=== PATIENT | female | born 1990 | race African-American/Black ===

== ENCOUNTER 2018-10-29 23:37 | Emergency (ER) | payer MEDICAID ==
[~2018-10-29] VITALS: Ht 162.6 cm; Wt 54.4 kg
[~2018-10-29 23:37] MED LIST: MIRT1TAB14 PO
[2018-10-29 23:50] VITALS: BP 143/93
[2018-10-30] MEDS ORDERED: ACETAMINOPHEN/CODEINE#3 (300/30mg) TAB PO ONE (05:25)
== END 2018-10-30 05:35 | disposition home or self-care (01) ==
LOC: ER 23:40
DX: N61.0 Mastitis without abscess (principal); F17.210 Nicotine dependence, cigarettes, uncomplicated; Z88.5 Allergy status to narcotic agent; Z79.899 Other long term (current) drug therapy
CPT/HCPCS: 76642